=== PATIENT | female | born 1945 | race Caucasian/White ===

== ENCOUNTER 2020-07-18 12:53 | Outpatient (CLI) | payer OTHER | END 2020-07-18 19:56 | disposition home or self-care (01) | LOC: SMA 12:53 | PROVIDERS: ATTEND Family Medicine | DX: Z12.31 Encounter for screening mammogram for malignant neoplasm of breast (principal); N64.89 Other specified disorders of breast | CPT/HCPCS: 77067 ==

== ENCOUNTER 2020-09-12 10:47 | Emergency (ER) | payer OTHER ==
[~2020-09-12] VITALS: Ht 162.6 cm; Wt 57.2 kg
--- NOTE | 2020-09-12 11:20 | NUR ---
Dr Triplett evaluating patient at triage room
--- NOTE | 2020-09-12 11:25 | NUR ---
Pt brought by daughter, A&Ox4, pt presents to ER with headache x 2 days, pt denies trauma, no facial drop, intact ROM, skin pink and warm , speaking in full sentences, denies blurred vision, respirations are even and unlabored.
[2020-09-12 11:36] VITALS: BP_SYST 158
[2020-09-12 13:38] VITALS: BP_SYST 152
--- NOTE | 2020-09-12 13:38 | NUR ---
Patient given written and verbal discharge instructions and verbalizes understanding. ER MD discussed with patient the results and treatment provided. Patient in stable condition. ID arm band removed. Rx of Lent[place] 5/325 mg given. Patient educated on pain management and to follow up with PMD. Pain Scale 2/10 . Opportunity for questions provided and answered. Medication side effect fact sheet provided.
== END 2020-09-12 13:38 | disposition home or self-care (01) ==
LOC: SED 10:47
DX: R51.9 Headache, unspecified (principal); G62.9 Polyneuropathy, unspecified; E07.9 Disorder of thyroid, unspecified
CPT/HCPCS: 70450-TC; 76376; 99284

== ENCOUNTER 2022-10-09 14:08 | Outpatient (CLI) | payer OTHER | END 2022-10-09 20:09 | disposition home or self-care (01) | LOC: SMA 14:08 | DX: Z12.31 Encounter for screening mammogram for malignant neoplasm of breast (principal) | CPT/HCPCS: 77067 ==